=== PATIENT | female | born 2005 | race Two or more races ===

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

== ENCOUNTER → 2024-10-29 | Outpatient (CLI) | payer OTHER ==
[2024-10-30 15:55] LABS: Chlamydia Trachomatis Vaginal NOT DETECTED (NOT DETECT); Neisseria Gonorrhoea Vaginal NOT DETECTED (NOT DETECT)
== END | disposition home or self-care (01) ==
LOC: LAB SHORT 17:21 → LAB 17:21 → LAB SHORT 10-30 12:47
PROVIDERS: Family Medicine
DX: Z11.3 Encounter for screening for infections with a predominantly sexual mode of transmission (principal)
CPT/HCPCS: 87491; 87591